=== PATIENT | male | born 1995 | race American Indian/Alaskan Native ===

== ENCOUNTER 2019-06-08 18:23 | Emergency (ER) | payer OTHER ==
[2019-06-08 18:35] VITALS: BP 152/91
[2019-06-08] MEDS ORDERED: ACETAMINOPHEN 500 MG TAB PO ONE (20:36)
[2019-06-08] MEDS ORDERED: IBUPROFEN 600 MG TAB PO ONE (20:37)
--- NOTE | 2019-06-08 20:45 | Emergency Department Report ---
ED General Adult HPI - General Chief complaint: Headache Stated complaint: FLU SYM/NERVE PAIN Time Seen by Provider: 06/08/19 20:30 Source: patient, RN notes reviewed Mode of arrival: Ambulatory Limitations: No Limitations - History of Present Illness Initial comments: Primary care doctor: Erwin julian The patient is a 24-year-old gentleman who is not known to myself previously. He states he has no chronic medical conditions, and does not take any long-term prescription medications. He presents to the ER with a primary complaint of headache. The headache is left-sided and intermittently right-sided. The headache is throbbing and intermittent for the past few days. The headache is not sudden or thunderclap in nature. The headache is not maximal in intensity within an hour. There is no nausea, vomiting, no fever, no neck pain or no neck stiffness. There is no loss of visual acuity. He also endorses chronic dentalgia over tooth #32. There is no sensitivity to hot or cold, no stridor, no dysphonia, no trismus or malocclusion. He describes the pain on his forehead/temporal region is throbbing and sharp occasionally. It is basically resolved at this time. He reports that he is on his cell phone at least 6 hours/day, and his work/job requires him to be in front of a computer most of the time. He denies additional physical injuries or complaints. He took [id number] pain medication with minimal relief in symptoms. -: Gradual, days(s) Location: head Consistency: intermittent Improves with: none Worsens with: none Associated Symptoms: denies other symptoms - Related Data Previous Rx's Medication Instructions Recorded Last Taken Type Acetaminophen [Non-Aspirin Extra 500 mg PO Q6HR PRN #30 tablet 06/08/19 Unknown Rx Strength] Chlorhexidine Mouthwash [Peridex] 15 ml MM BID #1 bottle 06/08/19 Unknown Rx Ibuprofen [Motrin] 600 mg PO Q8H PRN #30 tablet 06/08/19 Unknown Rx Allergies Allergy/AdvReac Type Severity Reaction Status Date / Time No Known Allergies Allergy Unverified 06/08/19 18:33 ED Review of Systems ROS: Stated complaint: FLU SYM/NERVE PAIN Other details as noted in HPI Constitutional: denies: fever Eyes: denies: eye discharge ENT: dental pain Respiratory: denies: cough Cardiovascular: denies: chest pain Gastrointestinal: denies: nausea, vomiting Genitourinary: as per HPI Musculoskeletal: as per HPI. denies: back pain, myalgia Neurological: as per HPI, headache. denies: weakness, numbness, paresthesias, confusion ED Past Medical Hx - Past Medical History Previous Medical History?: Yes Hx Asthma: Yes - Surgical History Past Surgical History?: Yes Additional Surgical History: Right wrist surgery - Social History Smoking Status: Never Smoker Substance Use Type: Marijuana - Medications Home Medications: Home Medications Medication Instructions Recorded Confirmed Last Taken Type Acetaminophen [Non-Aspirin Extra 500 mg PO Q6HR PRN #30 tablet 06/08/19 Unknown Rx Strength] Chlorhexidine Mouthwash [Peridex] 15 ml MM BID #1 bottle 06/08/19 Unknown Rx Ibuprofen [Motrin] 600 mg PO Q8H PRN #30 tablet 06/08/19 Unknown Rx ED Physical Exam - General Limitations: No Limitations General appearance: alert, in no apparent distress - Head Head exam: Present: atraumatic, normocephalic - Eye Eye exam: Present: normal appearance, PERRL, EOMI, other (Visual acuity intact to finger counting, color perception, reading at a close distance). Absent: nystagmus - ENT ENT exam: Present: normal exam, normal orophraynx, mucous membranes moist, normal external ear exam, other (Dental caries over tooth #32. There is no gingival abscess, no stridor, no dysphonia, no trismus, no malocclusion) - Neck Neck exam: Present: normal inspection, full ROM. Absent: tenderness, meningismus - Respiratory Respiratory exam: Present: normal lung sounds bilaterally. Absent: respiratory distress - Cardiovascular Cardiovascular Exam: Present: regular rate, normal rhythm, normal heart sounds. Absent: bradycardia, tachycardia, irregular rhythm, systolic murmur, diastolic murmur, rubs, gallop - GI/Abdominal GI/Abdominal exam: Present: soft. Absent: distended, tenderness, guarding, rebound, rigid, pulsatile mass - Rectal Rectal exam: Present: deferred - Extremities Exam Extremities exam: Present: normal inspection, full ROM, other (2+ pulses noted in the bilateral upper and lower extremities. There is no palpable cord. negative Homans sign. Muscular compartments are soft. The pelvis is stable.). Absent: pedal edema, calf tenderness - Back Exam Back exam: Present: normal inspection, full ROM. Absent: tenderness, CVA tenderness (R), CVA tenderness (L), paraspinal tenderness, vertebral tenderness - Neurological Exam Neurological exam: Present: alert, oriented X3, normal gait, other (There is no facial droop. The tongue is midline. Extraocular movements are intact bilatera lly. There is 5 out of 5 strength in bilateral upper and lower extremities. Sensation is intact to light touch bilateral upper and lower extremities. There is no past-pointing. There is no pronator drift. There is normal [id number]. There is a normal gait.). Absent: motor sensory deficit - Psychiatric Psychiatric exam: Present: normal affect, normal mood - Skin Skin exam: Present: warm, dry, intact, normal color. Absent: rash ED Course Vital Signs 06/08/19 18:29 Temperature 98.9 F Pulse Rate 61 Respiratory 18 Rate Blood Pressure 152/91 O2 Sat by Pulse 100 Oximetry ED Medical Decision Making - Medical Decision Making Vital Signs 06/08/19 18:29 Temperature 98.9 F Pulse Rate 61 Respiratory 18 Rate Blood Pressure 152/91 O2 Sat by Pulse 100 Oximetry Differential diagnosis, including but not limited to: Migraine headache, tension headache, cluster headache, dental caries, headache associated with excessive cellular phone use Assessment and plan: 24-year-old gentleman who is afebrile with reassuring vital signs, GCS 15, NIH score of 0, With mild headache. Upon my initial evaluation, he is quite engaged, playing games on his cellular phone, and is intermittently checking an electronic watch, which appears to be sending him text messages. His physical examination is fairly unremarkable. Explained that patient showed refrain from excessive cell phone use, computer screen use, explained that he may take Tylenol every 4 hours, ibuprofen every 6 hours. He has an up-to-date glasses prescription, and benign exam otherwise, his headache does not appear to have red flag signs or symptoms. Elevated blood pressure reviewed and appreciated, this appears to be incidental, and it is not symptomatic at this time. Please reference the [employer] clinical policy and elevated blood pressure/hypertension which is not acutely symptomatic or decompensated. Critical care attestation.: If time is entered above; I have spent that time in minutes in the direct care of this critically ill patient, excluding procedure time. ED Disposition Clinical Impression: Headache, Dental caries Disposition: DC-01 TO HOME OR SELFCARE Is pt being admited?: No Does the pt Need Aspirin: No Condition: Stable Additional Instructions: Recommend that patient minimize cellular phone use to applications and tasks that are only essential for life function. Recommend that patient take a break once per hour for 5 minutes, and detach from her computer screen, for every hour that the patient is required to be in front of a computer for work-related activities. Recommend that patient brush teeth at least twice a day, floss once daily, and follow-up with a dentist within the next 2 to 4 weeks. Recommend follow-up with a primary care doctor within the next 4 to 6 weeks. Please return to the emergency room right away with new, worsened or different symptoms, or symptoms not present on the initial emergency room evaluation. Referrals: [facility] [Provider Group] - as needed [facility] [Outside] - as needed Forms: Work/School Release Form(ED)
== END 2019-06-08 21:15 | disposition home or self-care (01) ==
LOC: ED 18:23
DX: K02.9 Dental caries, unspecified (principal); R51 Headache; J45.909 Unspecified asthma, uncomplicated; F12.10 Cannabis abuse, uncomplicated
CPT/HCPCS: 99282